=== PATIENT | male | born 1955 | race Caucasian/White ===

== ENCOUNTER 2021-01-23 23:00 | Emergency (ER) | payer MEDICARE, OTHER ==
[~2021-01-23] VITALS: Ht 185.4 cm; Wt 99.0 kg
--- NOTE | 2021-01-23 23:30 | PHYS DOC ---
Adult General Chief Complaint Chief Complaint: ABDOMINAL PAIN HPI HPI Patient is a 65-year-old male with a past medical history significant for multiple renal stones and hypertension who presents with left flank pain. States that about 2:00 this afternoon he had pain in his left flank, 8 out of 10, sharp in nature that woke him up from his nap. States he had associated nausea and vomiting x2 that was nonbloody and nonbilious. Denies any recent travel, traumas, illnesses, fevers, known ill contacts. Denies any chest pain, shortness of breath, other abdominal pain, diarrhea or blood in the stool. Review of Systems Review of Systems Review of systems otherwise unremarkable except noted in HPI Current Medications Current Medications Current Medications Medications (Trade) Dose Ordered Sig/Adrian Start Time Stop Time Status Last Admin Dose Admin Morphine Sulfate (Morphine 4mg Syringe) 4 mg 1X ONCE 01/23/21 23:30 01/23/21 23:31 UNV Physical Exam Physical Exam Constitutional: Well developed, well nourished, no acute distress, non-toxic appearance. [] HENT: Normocephalic, atraumatic, bilateral external ears normal, oropharynx m oist, no oral exudates, nose normal. [] Eyes: conjunctiva normal, no discharge. [] Neck: Normal range of motion, no tenderness, supple, no stridor. [] Cardiovascular:Heart rate regular rhythm, no murmur [] Lungs & Thorax: Bilateral breath sounds clear to auscultation [] Abdomen: soft, left flank tenderness to palpation, no masses, no pulsatile masses. [] Skin: Warm, dry, no erythema, no rash. [] Back: No tenderness, no CVA tenderness. [] Extremities: No tenderness, no cyanosis, ROM intact, Neurologic: Alert and oriented X 3, normal motor function, normal sensory f unction, no focal deficits noted. [] Psychologic: Affect normal, judgement normal, mood normal. [] EKG EKG [] Radiology/Procedures Radiology/Procedures [] IMPRESSION: 1. Left adrenal 4.5 cm acute hemorrhage. Unilateral adrenal hemorrhage is often associated with trauma, correlate with patient's history. A follow-up CT abdomen pelvis in 4-6 weeks may be helpful to exclude underlying lesion. 2. Infrarenal abdominal aortic aneurysm measuring 3.8 cm in diameter. 3. Nonobstructive right renal 2 mm calculus. 4. Cholelithiasis. Electronically signed by: Ankit Hook MD (01/24/2021 12:01 AM) [facility] Heart Score C/O Chest Pain: No Risk Factors: Risk Factors: DM, Current or recent (<one month) smoker, HTN, HLP, family history of CAD, obesity. Risk Scores: Risk Factors: DM, Current or recent (<one month) smoker, HTN, HLP, family history of CAD, obesity. Course & Med Decision Making Course & Med Decision Making Patient is a 65-year-old male who presents with acute onset left flank pain associated with nausea and vomiting Vital signs notable for hypertension. Physical exam noted above. IV placed. No nausea at this time. Given morphine initially for pain. On reassessment patient stated pain had resolved and does not endorse any new symptoms. CT noted above with a 4.5 cm acute hemorrhage on left adrenal. Patient is adamant he has had no traumas. States he is only on losartan for blood pressure and has never been on blood thinners. Laboratory analysis notable for a slightly elevated leukocytosis. Hemoglobin normal. Discussed all findings with family and offered admission for observation and better blood pressure control. Patient stated he would rather just go home and call Dr. Iglesias, his primary care physician first thing Wednesday to discuss his ED visit and set up a repeat CT in 4 to 6 weeks. Discussed with patient that although he did not have a trauma and is not on blood thinners that he does have some bleeding around his left adrenal gland and with no etiology. Advised that it could be risky to go home without knowing exactly why because he could have continued bleeding which could lead to significant pain, infection, illness severe internal bleeding, disability and in worse case scenario . Patient stated that he was feeling better and assured that he has had no history of trauma and is not on blood thinners and states he would prefer to just go home and rest over the weekend and follow-up with Dr. Iglesias first thing Wednesday to discuss all of this. Advised rest over the weekend with no strenuous activity at all with sitting at home, resting on the couch being the preferred. Advised on pain medication at home. Advised no NSAIDs such as aspirin or ibuprofen. Advised to continue take his blood pressure medication as prescribed and also discussed this with Dr. Iglesias on Wednesday. Gave strict return precautions to the emergency department. Family grateful, verbalized understanding and agreed with plan of discharge. Dragon Disclaimer Dragon Disclaimer This electronic medical record was generated, in whole or in part, using a voice recognition dictation system. Departure Departure: Impression: Primary Impression: Left flank pain Additional Impression: Adrenal hemorrhage Disposition: 01 DC HOME SELF CARE/HOMELESS Condition: GOOD Referrals: RADHA IGLESIAS MD (PCP) Additional Instructions: Please read all of the attached information. As extensively discussed please stay at home over the weekend and do not participate in any strenuous activities, exercise. To the best just to stay at home, and relax, take your other medications as prescribed and your prescription pain medicine. Please do not take any aspirin, ibuprofen containing products such as Advil or Motrin or naproxen/Aleve. You were given a printout of your CT for your primary care physician. As discussed extensively please come back to the emergency department immediat marii if you have any new or concerning symptoms including but not limited to lightheadedness or feelings of fainting, chest pain, shortness of breath, numbness/weakness/tingling, increased or worsening abdominal pain, uncontrolled nausea or vomiting, blood in your urine or stool. Please call your primary care physician first thing Wednesday morning to discuss your ED visit and get into see them as soon as possible to discuss need for repeat imaging in 4 to 6 weeks. Scripts Hydrocodone Bit/Acetaminophen (HYDROCODONE-APAP 5-325 ) 1 Each Tablet 1 TAB PO TID PRN for abdomianl for 5 Days, #15 TAB 0 Refills Prov: MEAGAN VERA MD 01/24/21 Problem Qualifiers MEAGAN VERA MD Jan 23, 2021 23:30
[2021-01-23] MEDS ORDERED: MORPHINE SULFATE 4 MG/ML DISP.SYRIN. IV ONE (23:45)
[2021-01-24 00:01] LABS: BASO # 0.1 x10^3/uL (0.0-0.2); BASO % 1 % (0-3); EOS % 0 % (0-3); HEMATOCRIT 45.2 % (39.0-53.0); HEMOGLOBIN 15.3 g/dL (13.0-17.5); LYMPH # 1.5 x10^3/uL (1.0-4.8); LYMPH % 12 % (24-48); MEAN CORPUSCULAR HEMOGLOBIN 30 pg (25-35); MEAN CORPUSCULAR HGB CONC 34 g/dL (31-37); MEAN CORPUSCULAR VOLUME 88 fL (79-100); MONO # 0.8 x10^3/uL (0.0-1.1); MONO % 6 % (0-9); NEUT # 10.1 x10^3uL (1.8-7.7); NEUT % 80 % (31-73); PLATELET COUNT 306 x10^3/uL (140-400); RED BLOOD COUNT 5.12 x10^6/uL (4.30-5.70); RED CELL DISTRIBUTION WIDTH 15.1 % (11.5-14.5); WHITE BLOOD COUNT 12.5 x10^3/uL (4.0-11.0)
--- NOTE | 2021-01-24 00:03 | RAD ---
CT ABDOMEN PELVIS W/O CONTRAST INDICATION: left flank pain EXAM: Noncontrast CT of the abdomen and pelvis. Coronal and sagittal reformatted images were perform ed. PQRS compliance statement: One or more of the following individualized dose reduction techniques were utilized for this examinat ion: 1. Automated exposure control 2. Adjustment of the mA and/or kV according to patient size 3. Use of iterative reconstruction technique COMPARISON: None FINDINGS: Lower chest: The visualized lower lungs are aerated. No pleural or pericardial effusion. ABDOMEN: Liver: The noncontrast liver is homogeneous in attenuation. Gallbladder and biliary: Cholelithiasis. Normal caliber bile ducts. Spleen: Normal spleen. Pancreas: The noncontrast pancreas is homogeneous in attenuation without peripancreatic inflammatory changes. Adrenal glands: Left adrenal hyperdense mass with hyperdense stranding in the periadrenal fat, measur ing 4.5 x 4.2 x 4.3 cm. Mild right adrenal thickening Kidneys and ureters: Nonobstructive right renal 2 mm calculus. No hydronephrosis. GI tract: The stomach is decompressed and poorly evaluated. Normal caliber small bowel and colon. Nor mal appendix. Vascular structures: Infrarenal abdominal aortic aneurysm measuring 3.8 cm in diameter. Lymph nodes: No lymphadenopathy in the abdomen or pelvis. PELVIS: Genitourinary system: Normal bladder. SKELETAL STRUCTURES AND SOFT TISSUES: Degenerative changes of the spine IMPRESSION: 1. Left adrenal 4.5 cm acute hemorrhage. Unilateral adrenal hemorrhage is often associated with traum a, correlate with patient's history. A follow-up CT abdomen pelvis in 4-6 weeks may be helpful to exc lude underlying lesion. 2. Infrarenal abdominal aortic aneurysm measuring 3.8 cm in diameter. 3. Nonobstructive right renal 2 mm calculus. 4. Cholelithiasis. Electronically signed by: Ankit Hook MD (01/24/2021 12:01 AM) [facility]
[2021-01-24 00:14] LABS: CALCIUM 9.5 mg/dL (8.5-10.1); CREATININE 1.1 mg/dL (0.7-1.3); POTASSIUM 4.1 mmol/L (3.5-5.1)
[2021-01-24] MEDS ORDERED: HYDR-2155 PO (00:51)
[2021-01-24 01:10] VITALS: BP 165/101
== END 2021-01-24 01:10 | disposition home or self-care (01) ==
LOC: ER 23:00
DX: E27.49 Other adrenocortical insufficiency (principal); I10 Essential (primary) hypertension; Z87.442 Personal history of urinary calculi
CPT/HCPCS: 36415; 74150; 80048; 85025; 96374; 99284; J2270

== ENCOUNTER → 2021-02-07 | Outpatient (CLI) | payer MEDICARE ==
[2021-01-24 01:10] VITALS: BP 165/101
[~2021-02-07] MED LIST: HYDR-2155 PO; IOHEXOL 240 MG/ML 50ML VIAL. ONE; IOHEXOL 300 MG/ML 75 ML VIAL. IV ONE
[2021-02-07] MEDS: IOHEXOL 300 MG/ML 75 ML VIAL. IV ONE (09:14)
--- NOTE | 2021-02-07 10:41 | RAD ---
EXAM: CT Abdomen and Pelvis with IV contrast INDICATION: Reason: ADRENAL HEMORRHAGE / Spl. Instructions: / History: TECHNIQUE: Multi-detector row CT images were acquired from the lung bases through the abdomen and pel vis with the use of IV contrast. Sagittal and coronal images were acquired from the transaxial data. All CT scans performed at this facility utilize dose optimization techniques as appropriate to the ex am, including the following: Automated exposure control and adjustment of the mA and/or KV according to patient size (this includes techniques or standardized protocols for targeted exams where dose is indication/reason for exam). IV CONTRAST: Administered ORAL CONTRAST: Administered COMPARISON: Abdomen pelvis CT without IV contrast of 01/23/2021 FINDINGS: LOWER CHEST: Unremarkable LIVER: Unremarkable BILIARY SYSTEM: Gallbladder contains layering densities compatible with tiny stones. Bile ducts are n ot dilated. PANCREAS: Unremarkable SPLEEN: Unremarkable ADRENALS: Medial limb right adrenal 1.7 cm nodule is unchanged. Resolving hemorrhage around the left adrenal gland is apparent with residual soft tissue stranding but there are is more clearly seen a 4 .8 cm left adrenal mass showing heterogeneous enhancement. KIDNEYS & URETERS: Punctate nonobstructing 2 mm stone in the superior pole right kidney and multiple bilateral renal cortical cysts, largest in the midpole left kidney measuring 3.5 cm. These do not re quire additional imaging follow-up. BLADDER: Unremarkable REPRODUCTIVE ORGANS: Prostate measures 5.2 cm in diameter. GASTROINTESTINAL: The stomach, small bowel, and colon are notable for scattered colonic diverticuli w ithout findings of acute diverticulitis.. The appendix is normal. MESENTERY/PERITONEUM/RETROPERITONEUM: Unremarkable VASCULAR: Abdominal aorta is mildly ectatic at 3.6 cm in diameter and shows scattered mural calcific ations and noncalcified atheromatous plaque that may be causing flow-limiting stenosis in the proxima l left common iliac artery though evaluation is limited by lack of satisfactory arterial phase enhanc ement. LYMPH NODES: No adenopathy OSSEOUS & SOFT TISSUES: Multilevel lumbar spinal degenerative spondylosis. There are extruded disc f ragments in the ventral epidural space at the L3-L4 level that contain gas from adjacent disc vacuum phenomenon as well. IMPRESSION: Bilateral adrenal masses, measuring 1.7 cm on the right and 4.8 cm on the left left. The latter shows incomplete resolution of spontaneous hemorrhage and is recommended for surgical consult to assess it s resectability. Electronically signed by: Benny Castellanos MD (02/07/2021 10:39 AM) [id number]
== END ==
LOC: CT 07:57
PROVIDERS: ATTEND Internal Medicine
DX: E27.49 Other adrenocortical insufficiency (principal); K57.30 Diverticulosis of large intestine without perforation or abscess without bleeding; N20.0 Calculus of kidney; N21.0 Calculus in bladder; M47.816 Spondylosis without myelopathy or radiculopathy, lumbar region
CPT/HCPCS: 74177; Q9967

== ENCOUNTER 2021-03-31 11:25 | Emergency (ER) | payer MEDICARE ==
[~2021-03-31] VITALS: Ht 185.4 cm; Wt 80.8 kg
[~2021-03-31 11:25] MED LIST changes: -IOHEXOL 240 MG/ML 50ML VIAL. ONE; -IOHEXOL 300 MG/ML 75 ML VIAL. IV ONE
--- NOTE | 2021-03-31 11:48 | RAD ---
EXAM: Chest, single view. HISTORY: Weakness. COMPARISON: None. FINDINGS: A frontal view of the chest is obtained. There is an irregular right upper lobe mass or mas slike consolidation. There is right hilar and suprahilar soft tissue prominence. There is left infrah ilar opacity likely due to a nipple shadow and overlying osseous shadows. There is no pleural effusio n or pneumothorax. The heart is normal in size. IMPRESSION: Irregular mass or masslike consolidation involving the right upper lobe with associated right hilar and suprahilar prominence. This can be better assessed with a CT. Electronically signed by: Jane Plunkett MD (03/31/2021 11:46 AM) [id number]
[2021-03-31 11:50] LABS: BASO % 0 % (0-3); EOS # 0.1 x10^3/uL (0.0-0.7); EOS % 1 % (0-3); HEMATOCRIT 40.6 % (39.0-53.0); HEMOGLOBIN 13.6 g/dL (13.0-17.5); LYMPH % 9 % (24-48); MEAN CORPUSCULAR HEMOGLOBIN 29 pg (25-35); MEAN CORPUSCULAR HGB CONC 33 g/dL (31-37); MEAN CORPUSCULAR VOLUME 87 fL (79-100); MONO # 0.1 x10^3/uL (0.0-1.1); MONO % 1 % (0-9); NEUT # 9.5 x10^3uL (1.8-7.7); NEUT % 89 % (31-73); PLATELET COUNT 300 x10^3/uL (140-400); RED BLOOD COUNT 4.65 x10^6/uL (4.30-5.70); WHITE BLOOD COUNT 10.8 x10^3/uL (4.0-11.0)
--- NOTE | 2021-03-31 11:55 | PHYS DOC ---
Past History Past Medical History: Cancer, COPD, GERD, Hypertension, Kidney Stones Past Surgical History: Other Additional Past Surgical Histo: LUNG BX Alcohol Use: None General Adult EDM: Chief Complaint: WEAKNESS/GENERALIZED HPI: HPI: 66-year-old male presents with difficulty swallowing. The patient been unable to eat for 2 to 3 days. He was unable to take his medications last night and this morning. His voice strength is also significantly decreased. The patient had chemotherapy 5 days ago for lung cancer metastasis. This is his first treatment. The patient's significant other called his cancer physician and they recommended he come to the emergency room for evaluation and IV hydration. Patient denies fever or chills. Other than being generally fatigued he has not had any significant complaints. Review of Systems: Review of Systems: Constitutional: Denies fever or chills Eyes: Denies change in visual acuity HENT: Unable to swallow Respiratory: Denies cough or shortness of breath Cardiovascular: Denies chest pain or edema GI: Denies abdominal pain, nausea, vomiting, bloody stools or diarrhea : Denies dysuria Musculoskeletal: Denies back pain or joint pain Integument: Denies rash Neurologic: Denies headache, focal weakness or sensory changes Endocrine: Denies polyuria or polydipsia Lymphatic: Denies swollen glands Psychiatric: Denies depression or anxiety Current Medications: Current Meds: Current Medications Medications (Trade) Dose Ordered Sig/Adrian Start Time Stop Time Status Last Admin Dose Admin Dextrose/Sodium Chloride 500 ml @ 0 mls/hr 1X ONCE 03/31/21 12:00 03/31/21 12:01 UNV Sodium Chloride 1,000 ml @ 1,000 mls/hr 1X ONCE 03/31/21 12:00 03/31/21 12:59 UNV Allergies: Allergies: Allergies Coded Allergies Type Severity Reaction Last Updated Verified No Known Allergies Allergy Unknown 01/23/21 Yes Physical Exam: PE: Constitutional: Well developed, well nourished, no acute distress, non-toxic appearance. [] HENT: Normocephalic, atraumatic, bilateral external ears normal, oropharynx very dry, no oral exudates, nose normal. [] Eyes: PERRLA, EOMI, conjunctiva normal, no discharge. [] Neck: Normal range of motion, no tenderness, supple, no stridor. [] Cardiovascular:Heart rate regular rhythm, no murmur [] Lungs & Thorax: Bilateral breath sounds clear to auscultation [] Abdomen: Bowel sounds normal, soft, no tenderness, no masses, no pulsatile masses. [] Skin: Warm, dry, no erythema, no rash. [] Back: No tenderness, no CVA tenderness. [] Extremities: No tenderness, no cyanosis, no clubbing, ROM intact, no edema. [] Neurologic: Alert and oriented X 3, normal motor function, normal sensory function, no focal deficits noted. [] Psychologic: Affect normal, judgement normal, mood normal. [] Current Patient Data: Vital Signs: Vital Signs Date Time Temp Pulse Resp B/P (MAP) Pulse Ox O2 Delivery O2 Flow Rate FiO2 03/31/21 11:27 97.9 104 20 138/52 (80) 98 Room Air EKG: EKG: [] Radiology/Procedures: Radiology/Procedures: [] Impressions: Site ID: [id number] EXAMINATION: CT NECK SOFT TISSUE WITH IV CONTRAST. HISTORY: 66 years Male Reason: unable to swallow, recent LUNG AND ABD CA diagnosis / Spl. Instructions: / History: . . COMPARISON: None. FINDINGS: The right thyroid lobe demonstrates a 1.2 cm nonspecific hypoechoic dense nodule. The parotid and submandibular glands appear unremarkable. The mucosal pharyngeal space and airway appear unremarkable. There are no masses are significantly enlarged lymph nodes along the cervical chain. There is a non specific thickening of the skin along the left cheek area with the subcutaneous nodularity with low density may relate to sebaceous cysts. Correlate with focal physical exam. The carotid arteries and internal jugular veins demonstrate normal enhancement. Sections in the upper chest demonstrate the areas of patchy consolidation and scarring in the right upper lobe. This may correlate with the provided history of lung cancer. The cervical spine demonstrate prominent degenerative changes of the discs and the facet joint levels. This is associated with the high-grade neural foraminal stenosis on the left side at C3/4 and C5/6 and on the right side at C4/5 and C5/6 levels. IMPRESSION: 1. Nonspecific skin thickening with the suggestion of the subcutaneous cystic areas perhaps sebaceous cysts or related to skin infection at the left cheek area. Correlate clinically. 2. A 1.2 cm hypodense lesion in the right thyroid lobe, indeterminate. Follow-up the evaluation with thyroid ultrasound can be helpful. Electronically signed by: Madan Lopez MD (03/31/2021 12:33 PM) [id number] EXAM: Chest, single view. HISTORY: Weakness. COMPARISON: None. FINDINGS: A frontal view of the chest is obtained. There is an irregular right upper lobe mass or masslike consolidation. There is right hilar and suprahilar soft tissue prominence. There is left infrahilar opacity likely due to a nipple shadow and overlying osseous shadows. There is no pleural effusion or pneumothorax. The heart is normal in size. IMPRESSION: Irregular mass or masslike consolidation involving the right upper lobe with associated right hilar and suprahilar prominence. This can be better assessed with a CT. Electronically signed by: Jane Marx MD (03/31/2021 11:46 AM) [id number] DICTATED AND SIGNED BY: JANE MARX MD DATE: 03/31/21 1145 CC: PARMJIT GOSS DO; RADHA WOODY MD ~MTH0 0 DICTATED AND SIGNED BY: MADAN LOPEZ MD DATE: 03/31/21 1222 CC: PARMJIT GOSS DO; RADHA WOODY MD ~MTH0 0 Heart Score: C/O Chest Pain: N/A Risk Factors: Risk Factors: DM, Current or recent (<one month) smoker, HTN, HLP, family history of CAD, obesity. Risk Scores: Score 0 - 3: 2.5% MACE over next 6 weeks - Discharge Home Score 4 - 6: 20.3% MACE over next 6 weeks - Admit for Clinical Observation Score 7 - 10: 72.7% MACE over next 6 weeks - Early Invasive Strategies Course & Med Decision Making: Course & Med Decision Making Pertinent Labs and Imaging studies reviewed. (See chart for details) The patient tells me that he can swallow and it feels like it goes down his throat but then within a minute or 2 it seems like it gets stuck and it will come back up. Today if he drinks anything except for very small sips of water it comes right back up. I will hydrate him with a liter of normal saline as well as 500 of D5 NS. We will also CT his neck. The patient's labs are unremarkable. His white count is normal. He does have some liver enzyme elevation. See official labs for more details. CT of the chest shows a lung mass, but this is already known. CT soft tissue of the neck shows a 1.2 cm lesion in the right thyroid and some other nonspecific findings. See official read for more details. We will give the patient 4 mg of Zofran IV. We will attempt a p.o. challenge. The patient is able to swallow some water. He has perked up compared to when he arrived. I spoke with his onc ologist, Dr. Mcacnn and he feels that the patient's labs are at baseline. He believes the patient can go home. I have stressed to the patient and his that he just has to eat. I will discharge him with Zofran prescription, but he just needs to make himself eat some high-calorie foods such as ice cream, [place] breakfast, boost or similar. He is stable for discharge at this time. [] Diannaon Disclaimer: Dragon Disclaimer: This electronic medical record was generated, in whole or in part, using a voice recognition dictation system. Departure Departure: Impression: Primary Impression: Weakness Additional Impressions: Sore throat Chemotherapy induced nausea and vomiting Disposition: 01 HOME / SELF CARE / HOMELESS Condition: STABLE Referrals: RADHA WOODY MD (PCP) Patient Instructions: Chemotherapy, Nausea and Vomiting, [id number] PARMJIT GOSS DO March 31, 2021 11:55
[2021-03-31 11:59] LABS: CALCIUM 9.3 mg/dL (8.5-10.1); GFR 74.5; POTASSIUM 4.4 mmol/L (3.5-5.1)
[2021-03-31] MEDS ORDERED: IV DEXTROSE 5% - 0.9 % NACL 500 ML IV ONE ×4 (12:00→14:45)
[2021-03-31] MEDS ORDERED: IV NORMAL SALINE 1,000ML 1,000 ML IV ONE (12:00)
[2021-03-31] MEDS ORDERED: IOHEXOL 300 MG/ML 75 ML VIAL. IV ONE (12:00)
[2021-03-31 12:06] LABS: ALBUMIN 2.7 g/dL (3.4-5.0); ALBUMIN/GLOBULIN RATIO 0.5 (1.0-1.7); TOTAL BILIRUBIN 1.5 mg/dL (0.2-1.0); TOTAL PROTEIN 7.7 g/dL (6.4-8.2)
--- NOTE | 2021-03-31 12:36 | RAD ---
Site ID: [id number] EXAMINATION: CT NECK SOFT TISSUE WITH IV CONTRAST. HISTORY: 66 years Male Reason: unable to swallow, recent LUNG AND ABD CA diagnosis / Spl. Instructi ons: / History: . . COMPARISON: None. FINDINGS: The right thyroid lobe demonstrates a 1.2 cm nonspecific hypoechoic dense nodule. The parotid and sub mandibular glands appear unremarkable. The mucosal pharyngeal space and airway appear unremarkable. T here are no masses are significantly enlarged lymph nodes along the cervical chain. There is a nonspe cific thickening of the skin along the left cheek area with the subcutaneous nodularity with low dens ity may relate to sebaceous cysts. Correlate with focal physical exam. The carotid arteries and internal jugular veins demonstrate normal enhancement. Sections in the upper chest demonstrate the areas of patchy consolidation and scarring in the right u pper lobe. This may correlate with the provided history of lung cancer. The cervical spine demonstrate prominent degenerative changes of the discs and the facet joint levels . This is associated with the high-grade neural foraminal stenosis on the left side at C3/4 and C5/6 and on the right side at C4/5 and C5/6 levels. IMPRESSION: 1. Nonspecific skin thickening with the suggestion of the subcutaneous cystic areas perhaps sebaceous cysts or related to skin infection at the left cheek area. Correlate clinically. 2. A 1.2 cm hypodense lesion in the right thyroid lobe, indeterminate. Follow-up the evaluation with thyroid ultrasound can be helpful. Electronically signed by: Davion Lopez MD (03/31/2021 12:33 PM) [id number]
[2021-03-31] MEDS ORDERED: ONDANSETRON PF 4 MG/2 ML VIAL. IVP ONE (13:15)
[2021-03-31 15:02] LABS: CLARITY,URINE CLEAR; COLOR,URINE AMBER
[2021-03-31 15:03] LABS: BILIRUBIN,URINE NEG (NEG); GLUCOSE,URINE NEG (NEG); NITRITE,URINE NEG (NEG)
[2021-03-31 15:07] LABS: BACTERIA,URINE 0 /HPF (0-FEW); RBC,URINE 0 /HPF (0-2); SQUAMOUS EPITHELIAL CELL,UR OCC /LPF; WBC,URINE 0 /HPF (0-4)
[2021-03-31] MEDS ORDERED: ONDA4TAB12 PO (15:30)
[2021-03-31 15:36] VITALS: BP 128/75
--- NOTE | 2021-03-31 21:19 | EKG ---
[address] [address] Test Date: 2021-03-31 Test Time: 11:55:49 Pat Name: LEORA CHRIS Department: Room: Gender: M Ditcher: : 1955 Requested By: PARMJIT GOSS Order Number: [id number] Reading MD: Measurements Intervals [place] Rate: 103 P: 54 SD: 158 QRS: 72 QRSD: 70 T: 73 QT: 338 QTc: 445 Interpretive Statements SINUS TACHYCARDIA LOW LIMB LEAD VOLTAGE NO SPECIFIC ECG ABNORMALITIES RI6.02 No previous ECG available for comparison
== END 2021-03-31 15:36 | disposition home or self-care (01) ==
LOC: ER 11:25
DX: J02.9 Acute pharyngitis, unspecified (principal); R53.1 Weakness; R11.2 Nausea with vomiting, unspecified; R13.10 Dysphagia, unspecified; J44.9 Chronic obstructive pulmonary disease, unspecified; K21.9 Gastro-esophageal reflux disease without esophagitis; I10 Essential (primary) hypertension; Z85.118 Personal history of other malignant neoplasm of bronchus and lung; Z87.442 Personal history of urinary calculi
CPT/HCPCS: 36415; 70491; 71045; 80053; 81001; 84484; 85025; 93005; 96361; 96374; 99285; J2405; J7030; J7042; Q9967

== ENCOUNTER 2021-05-11 12:30 | Emergency (ER) | payer MEDICARE ==
[~2021-05-11] VITALS: Ht 185.4 cm; Wt 73.5 kg
[~2021-05-11 12:30] MED LIST changes: +ONDA4TAB12 PO
[2021-05-11] MEDS ORDERED: IPRATRPIUM/ALBUTEROL 0.5/2.5MG 3 ML NEBU. ONE (12:53)
[2021-05-11] MEDS ORDERED: IV NORMAL SALINE 1,000ML 1,000 ML IV ONE (13:00)
[2021-05-11] MEDS ORDERED: IPRATRPIUM/ALBUTEROL 0.5/2.5MG 3 ML NEBU. NEB ONE (13:00)
[2021-05-11] MEDS ORDERED: methylPREDNISolone SOD SUCC PF 125 MG/2 ML VIAL. IV ONE (13:00)
--- NOTE | 2021-05-11 13:01 | PHYS DOC ---
Past History Past Medical History: Cancer, COPD, GERD, Hypertension, Kidney Stones Past Surgical History: Other Additional Past Surgical Histo: LUNG BX Alcohol Use: None Adult General Chief Complaint Chief Complaint: SHORTNESS OF BREATH HPI HPI Patient is a 66-year-old male presenting for shortness of breath. This is an acute on chronic issue. He has known history of lung cancer with mets, has had a history of chemotherapy with last dose over 1 month ago. Patient has tried using home inhalers without relief, patient admits to continued smoking which makes his shortness of breath is worse. Denies being in any pain. Timing of symptoms has been constant since onset approximately 5 days ago. Significant o ther with patient, brought patient in today as she is concerned about his overall wellbeing. States she thinks he is dehydrated as he has had poor p.o. intake for past 72 hours. In addition, she is concerned about fluctuating mentation, she is concern for mets to the brain at this time. No fever, vision changes, productive cough, chest pain, ripping or tearing sensation in chest, abdominal pain, dysuria or other UTI symptoms Review of Systems Review of Systems Fourteen body systems of review of systems have been reviewed. See HPI for pertinent positives and negative responses, other grigsby all other systems are negative, non-pertinent or non-contributory Current Medications Current Medications Current Medications Medications (Trade) Dose Ordered Sig/Adrian Start Time Stop Time Status Last Admin Dose Admin Albuterol/ Ipratropium (Duoneb) 3 ml 1X ONCE 05/11/21 13:00 05/11/21 13:06 DC 05/11/21 13:01 Azithromycin (Zithromax) 500 mg STK-MED ONCE 05/11/21 14:02 05/11/21 14:03 DC Azithromycin 500 mg/Sodium Chloride 250 ml @ 250 mls/hr 1X ONCE 05/11/21 13:45 05/11/21 14:44 05/11/21 14:11 Ceftriaxone Sodium 1 gm/ Sodium Chloride 50 ml @ 100 mls/hr 1X ONCE 05/11/21 13:45 05/11/21 14:14 DC 05/11/21 14:00 Ceftriaxone Sodium (Rocephin) 1 gm STK-MED ONCE 05/11/21 13:56 05/11/21 13:56 DC Methylprednisolone Sodium Succinate (SOLU-Medrol 125MG VIAL) 125 mg 1X ONCE 05/11/21 13:00 05/11/21 13:06 DC 05/11/21 13:30 Sodium Chloride 250 ml @ As Directed STK-MED ONCE 05/11/21 14:04 05/11/21 14:05 DC Allergies Allergies Allergies Coded Allergies Type Severity Reaction Last Updated Verified No Known Allergies Allergy Unknown 01/23/21 Yes Physical Exam Physical Exam Constitutional: Age-appropriate male in no acute distress, does appear tired and pale HENT: Normocephalic, atraumatic, bilateral external ears normal, oropharynx dry, no oral exudates, nose normal. Eyes: PERRLA, EOMI, conjunctiva normal, no discharge. Neck: Normal range of motion, no tenderness, supple, no stridor. Cardiovascular: Heart rate regular, sinus rhythm, no murmurs rubs or gallops Lungs & Thorax: No overt respiratory distress, patient tachypneic with no accessory muscle use, patient has extensive wheezes in all lung vargas Abdomen: Bowel sounds normal, soft, no tenderness, no masses, no pulsatile masses. Nonsurgical abdomen, no peritoneal signs Skin: Warm, dry, no erythema, no rash. Pale appearing Back: No tenderness, no CVA tenderness. Extremities: No tenderness, no cyanosis, no clubbing, ROM intact, no edema. Neurologic: Alert and oriented X 3, grossly normal motor & sensory function, no focal deficits noted. Psychologic: Affect normal, judgement normal, mood normal. Current Patient Data Vital Signs Vital Signs Date Time Temp Pulse Resp B/P (MAP) Pulse Ox O2 Delivery O2 Flow Rate FiO2 05/11/21 12:35 98.5 67 28 100/67 (78) 90 Room Air 05/11/21 13:03 2.0 Vital Signs Date Time Temp Pulse Resp B/P (MAP) Pulse Ox O2 Delivery O2 Flow Rate FiO2 05/11/21 13:34 121 28 93/64 (74) 91 Nasal Cannula 3.0 05/11/21 12:35 98.5 Lab Results Laboratory Tests Test 05/11/21 12:54 White Blood Count 20.6 x10^3/uL Red Blood Count 3.79 x10^6/uL Hemoglobin 10.6 g/dL Hematocrit 31.8 % Mean Corpuscular Volume 84 fL Mean Corpuscular Hemoglobin 28 pg Mean Corpuscular Hemoglobin Concent 34 g/dL Red Cell Distribution Width 16.0 % Platelet Count 630 x10^3/uL Neutrophils (%) (Auto) 90 % Lymphocytes (%) (Auto) 4 % Monocytes (%) (Auto) 5 % Eosinophils (%) (Auto) 0 % Basophils (%) (Auto) 0 % Neutrophils # (Auto) 18.5 x10^3uL Lymphocytes # (Auto) 0.9 x10^3/uL Monocytes # (Auto) 1.1 x10^3/uL Eosinophils # (Auto) 0.1 x10^3/uL Basophils # (Auto) 0.1 x10^3/uL Segmented Neutrophils % 76 % Band Neutrophils % 12 % Lymphocytes % 5 % Atypical Lymphocytes % (Manual) 1 % Monocytes % 5 % Eosinophils % 1 % Platelet Estimate Increased Polychromasia Present Bedside Venous pH 7.47 Bedside Venous pCO2 39 mmHg Bedside Venous pO2 25 mmHg Venous Blood HCO3 28 mmol/L POC Venous O2 Saturation (Collette) 50 % Bedside FiO2 95 Sodium Level 134 mmol/L Potassium Level 4.7 mmol/L Chloride Level 95 mmol/L Carbon Dioxide Level 27 mmol/L Anion Gap 12 Blood Urea Nitrogen 16 mg/dL Creatinine 1.1 mg/dL Estimated GFR (Cockcroft-Gault) 66.8 BUN/Creatinine Ratio 15 Glucose Level 105 mg/dL Lactic Acid Level 2.7 mmol/L Calcium Level 9.8 mg/dL Total Bilirubin 0.6 mg/dL Aspartate Amino Transf (AST/SGOT) 25 U/L Alanine Aminotransferase (ALT/SGPT) 14 U/L Alkaline Phosphatase 133 U/L Troponin I Quantitative < 0.017 ng/mL AH-Esj-E-Type Natriuretic Peptide 741 pg/mL Total Protein 8.0 g/dL Albumin 1.8 g/dL Albumin/Globulin Ratio 0.3 Current Medications Medications (Trade) Dose Ordered Sig/Adrian Route PRN Reason Start Time Stop Time Status Last Admin Dose Admin Albuterol/ Ipratropium (Duoneb) 3 ml STK-MED ONCE .ROUTE 05/11/21 12:53 05/11/21 12:54 DC Sodium Chloride 1,000 ml @ 1,000 mls/hr 1X ONCE IV 05/11/21 13:00 05/11/21 13:59 DC 05/11/21 13:28 Methylprednisolone Sodium Succinate (SOLU-Medrol 125MG VIAL) 125 mg 1X ONCE IV 05/11/21 13:00 05/11/21 13:06 DC 05/11/21 13:30 Albuterol/ Ipratropium (Duoneb) 3 ml 1X ONCE NEB 05/11/21 13:00 05/11/21 13:06 DC 05/11/21 13:01 Ceftriaxone Sodium 1 gm/ Sodium Chloride 50 ml @ 100 mls/hr 1X ONCE IV 05/11/21 13:45 05/11/21 14:14 DC 05/11/21 14:00 Azithromycin 500 mg/Sodium Chloride 250 ml @ 250 mls/hr 1X ONCE IV 05/11/21 13:45 05/11/21 14:44 05/11/21 14:11 Sodium Chloride 50 ml @ As Directed STK-MED ONCE .ROUTE 05/11/21 13:56 05/11/21 13:56 DC Ceftriaxone Sodium (Rocephin) 1 gm STK-MED ONCE .ROUTE 05/11/21 13:56 05/11/21 13:56 DC Sodium Chloride 250 ml @ As Directed STK-MED ONCE .ROUTE 05/11/21 14:02 05/11/21 14:03 DC Azithromycin (Zithromax) 500 mg STK-MED ONCE IV 05/11/21 14:02 05/11/21 14:03 DC Sodium Chloride 250 ml @ As Directed STK-MED ONCE .ROUTE 05/11/21 14:02 05/11/21 14:03 DC Azithromycin (Zithromax) 500 mg STK-MED ONCE IV 05/11/21 14:02 05/11/21 14:03 DC Sodium Chloride 250 ml @ As Directed STK-MED ONCE .ROUTE 05/11/21 14:04 05/11/21 14:05 DC EKG EKG EKG ordered and interpreted by myself 1255 hrs. at 126 bpm, unremarkable intervals, no axis deviation, no acute ischemic findings, no STEMI Radiology/Procedures Radiology/Procedures EXAM: Chest, single view. HISTORY: Shortness of breath. Lung cancer. COMPARISON: 03/31/2021 FINDINGS: A frontal view of the chest is obtained. There has been interval increase in a right upper lobe mass or masslike consolidation with architectural distortion. There is increased bilateral lower lobe interstitial infiltrate. There is emphysema. There is nodular opacity overlying the left lower lobe lik marii due to callus formation surrounding a healing rib fracture. The heart is normal in size. There is no pneumothorax or pleural effusion. IMPRESSION: 1. Increase in a right upper lobe mass or masslike consolidation with architectural distortion. 2. Pulmonary emphysema with bilateral lower lobe interstitial infiltrate. Electronically signed by: Jane Plunkett MD (05/11/2021 1:28 PM) [id number] Heart Score C/O Chest Pain: No HEART Score for Chest Pain: HEART Score for Chest Pain Response (Comments) Value History Moderately Suspicious 1 ECG Nonspecific Repolarizatio 1 Age > 65 2 Risk Factors >3 Risk Factors or Hx CAD 2 Troponin < Normal Limit 0 Total 6 Risk Factors: Risk Factors: DM, Current or recent (<one month) smoker, HTN, HLP, family history of CAD, obesity. Risk Scores: Risk Factors: DM, Current or recent (<one month) smoker, HTN, HLP, family history of CAD, obesity. Course & Med Decision Making Course & Med Decision Making Airway patent, patient showing increased work of breathing, IV access and vitals obtained concerning for hypoxia on room air, tachypnea, tachycardia and hypotens ion HPI, physical exam and comprehensive diagnostic work-up performed concerning for sepsis with source being pneumonia and a high risk individual with lung cancer and known metastatic disease. Significant other with patient concerned about metastatic spread to brain, reports all oncology cares performed at [facility] and that no imaging of the brain has ever been done per her knowledge. I reviewed CT head imaging that is concerning for prior stroke versus metastatic disease spread. I disclosed further evaluation is needed Ultimately, patient responded to ER intervention performed that included IV fluid rehydration, steroids, antibiotics and breathing treatment. Nonetheless, he is not fit for home given his numerous comorbidities. I discussed transfer t o [facility] for continuity of care but he wanted to stay local As such, I contacted hospitalist service at [facility] and disclosed need for hospital transfer for higher acuity of care. They agreed need for admission and accepted patient transfer I updated patient on proposed plan of care that included hospital transfer for further services such as pulmonology and oncology and continued care such as IV antibiotics among other things, he and significant other were amenable. They reiterate he is full CODE STATUS at this time Critical Care Time This patient required critical care. Due to the fact that the patient required a significant amount of one on one physician - patient contact time, ordering and review of studies, arranging urgent treatment with development of a management plan, evaluation of patients response to treatment with frequent reassessments, and discussions with other providers this patient required 45 minutes of critical care time. Critical care time was indicated due to the inherent instability and/or potential for instability in this patient. The critical care time that is allocated to this patient is above and beyond any time spent on any other billable procedures performed on this patient. Dragon Disclaimer Dragon Disclaimer This electronic medical record was generated, in whole or in part, using a voice recognition dictation system. Departure Departure: Impression: Primary Impression: Acute and chronic respiratory failure with hypoxia Additional Impressions: Sepsis due to pneumonia Primary lung cancer with metastasis from lung to other site Disposition: [facility] ([facility]) Admitting Physician: Other (dr jaime) Condition: STABLE Referrals: RADHA WOODY MD (PCP) Problem Qualifiers SANDHYA TRIMBLE DO May 11, 2021 13:01
[2021-05-11 13:15] LABS: BASO # 0.1 x10^3/uL (0.0-0.2); BASO % 0 % (0-3); EOS # 0.1 x10^3/uL (0.0-0.7); EOS % 0 % (0-3); HEMATOCRIT 31.8 % (39.0-53.0); HEMOGLOBIN 10.6 g/dL (13.0-17.5); LYMPH # 0.9 x10^3/uL (1.0-4.8); LYMPH % 4 % (24-48); MEAN CORPUSCULAR HEMOGLOBIN 28 pg (25-35); MEAN CORPUSCULAR HGB CONC 34 g/dL (31-37); MEAN CORPUSCULAR VOLUME 84 fL (79-100); MONO # 1.1 x10^3/uL (0.0-1.1); MONO % 5 % (0-9); NEUT # 18.5 x10^3uL (1.8-7.7); NEUT % 90 % (31-73); PLATELET COUNT 630 x10^3/uL (140-400); RED BLOOD COUNT 3.79 x10^6/uL (4.30-5.70); WHITE BLOOD COUNT 20.6 x10^3/uL (4.0-11.0)
--- NOTE | 2021-05-11 13:30 | RAD ---
EXAM: Chest, single view. HISTORY: Shortness of breath. Lung cancer. COMPARISON: 03/31/2021 FINDINGS: A frontal view of the chest is obtained. There has been interval increase in a right upper lobe mass or masslike consolidation with architectural distortion. There is increased bilateral lower lobe interstitial infiltrate. There is emphysema. There is nodular opacity overlying the left lower lobe likely due to callus formation surrounding a healing rib fracture. The heart is normal in size. There is no pneumothorax or pleural effusion. IMPRESSION: 1. Increase in a right upper lobe mass or masslike consolidation with architectural distortion. 2. Pulmonary emphysema with bilateral lower lobe interstitial infiltrate. Electronically signed by: Jane Plunkett MD (05/11/2021 1:28 PM) [id number]
--- NOTE | 2021-05-11 13:34 | RAD ---
Exam Date: 05/11/2021 1:[address] HEAD/BRAIN WO Indication: Reason: AMS WITH HISTORY LUNG CA / Spl. Instructions: / History: . TECHNIQUE: Head CT was performed without intravenous contrast. One or more of the following dose re duction techniques were utilized: *Automated exposure control (AEC) *Adjustment of mA and/or kV according to patient size *Use of iterative reconstruction technique *CT scan done according to ALARA, or ALARA/IMAGE GENTLY FINDINGS: The ventricles and sulci are prominent consistent with cerebral volume loss. Patchy ill-defined low attenuation areas in the subcortical and periventricular white matter bilaterally are consistent with microvascular disease. Focal subcortical hypodensity in the right frontal lobe is seen with preservation of porter-white diffe rentiation. This is suggestive of vasogenic edema and raises suspicion for underlying brain lesion or metastasis. Alternatively, this could represent gliosis from remote infarct. There is no evidence of acute intracranial hemorrhage, extra-axial collection, mass effect, midline s hift, or acute territorial infarct. No lesion of the skull base or the calvarium is seen. The visuali zed paranasal sinuses, mastoid air cells and orbits are normal in appearance. IMPRESSION: Focal subcortical hypodensity in the right frontal lobe with preservation of porter-white differentiati on may represent vasogenic edema and raises suspicion for underlying brain lesion or metastasis, give n the history of lung cancer. Alternatively, this could represent gliosis from remote infarct. Compar devora to prior exams if available is recommended to document stability, or further evaluation with MRI with and without contrast can be performed. No acute intracranial hemorrhage or acute territorial infarction. Volume loss and microvascular disease. Electronically signed by: Elier Beltrán MD (05/11/2021 1:31 PM) [facility]
[2021-05-11 13:38] LABS: ALBUMIN 1.8 g/dL (3.4-5.0); ALBUMIN/GLOBULIN RATIO 0.3 (1.0-1.7); CALCIUM 9.8 mg/dL (8.5-10.1); CREATININE 1.1 mg/dL (0.7-1.3); GFR 66.8; POTASSIUM 4.7 mmol/L (3.5-5.1); TOTAL BILIRUBIN 0.6 mg/dL (0.2-1.0)
[2021-05-11] MEDS ORDERED: AZITHROMYCIN 500 MG in IV NORMAL SALINE 250ML 250 ML IV ONE (13:45)
[2021-05-11] MEDS ORDERED: cefTRIAXone SODIUM 1 GM VIAL ONE (13:56)
[2021-05-11] MEDS ORDERED: IV NORMAL SALINE 50ML 50 ML ONE (13:56)
[2021-05-11 14:01] LABS: % ATYL 1 % (0-0); % BANDS 12 % (0-9); % EOS 1 % (0-5); % LYMPHS 5 % (24-48); % MONOS 5 % (0-10); % SEGS 76 % (35-66); PLT ESTIMATE INCREASED (ADEQUATE)
[2021-05-11 14:02] LABS: POLYCHROMASIA PRESENT
[2021-05-11] MEDS ORDERED: IV NORMAL SALINE 250ML 250 ML ONE ×3 (14:02→14:04)
[2021-05-11] MEDS ORDERED: AZITHROMYCIN 500 MG VIAL. IV ONE ×2 (14:02)
--- NOTE | 2021-05-11 14:10 | EKG ---
[address] [address] Test Date: 2021-05-11 Test Time: 12:49:50 Pat Name: LEORA PARKERREBECCAPhilipp Department: Room: Gender: M Triage Register Nurse: CORIE : 1955 Requested By: SANDHYA TRIMBLE Order Number: [id number] Reading MD: Measurements Intervals [place] Rate: 126 P: 69 MA: 162 QRS: 72 QRSD: 66 T: 66 QT: 296 QTc: 429 Interpretive Statements SINUS TACHYCARDIA VENTRICULAR PREMATURE COMPLEX(ES) LOW LIMB LEAD VOLTAGE QRS(T) CONTOUR ABNORMALITY CONSIDER ANTEROLATERAL MYOCARDIAL DAMAGE ABNORMAL ECG RI6.02 No previous ECG available for comparison
[2021-05-11 15:31] VITALS: BP 119/66
== END 2021-05-11 16:18 | disposition short-term general hospital (02) ==
LOC: ER 12:30
DX: A41.9 Sepsis, unspecified organism (principal); J18.9 Pneumonia, unspecified organism; R65.20 Severe sepsis without septic shock; J96.21 Acute and chronic respiratory failure with hypoxia; C34.90 Malignant neoplasm of unspecified part of unspecified bronchus or lung; C79.31 Secondary malignant neoplasm of brain; J44.9 Chronic obstructive pulmonary disease, unspecified; K21.9 Gastro-esophageal reflux disease without esophagitis; I10 Essential (primary) hypertension; Z87.442 Personal history of urinary calculi
CPT/HCPCS: 36415; 70450; 71045; 80053; 82803; 83605; 83880; 84484; 85007; 85025; 87040; 87205; 93005; 94640; 96361; 96365; 96375; 99291; J0456; J0696; J2930; J7030; J7050